=== PATIENT | female | born 1990 | race Caucasian/White ===

== ENCOUNTER 2019-06-29 16:21 | Emergency (ER) | payer MEDICAID ==
[~2019-06-29] VITALS: Ht 154.9 cm; Wt 45.4 kg
[2019-06-29 16:21] VITALS: BP_SYST 123
--- NOTE | 2019-06-29 16:21 | NUR ---
BROUGHT IN BY [facility], PLACED IN BED #1 AND TRIAGED. REPORT GIVEN TO MATY
--- NOTE | 2019-06-29 16:23 | NUR ---
Patient brought in by ambulance to the ED, she was found unresponsive today. Paramedics gave her Adenosine 6mg Intranasally. Patient denied any chest pain or shortness of breath. Denied any fevers, chills. Patient is alert and oriented x1, respirations even and unlabored. VSS, pain level 0/10. Informed of approximate wait time. Instructed to notify ED staff for any changes in condition or worsening of symptoms. Patient verbalized understanding.
--- NOTE | 2019-06-29 16:30 | NUR ---
ER Dr. Brothers at bedside examining patient.
--- NOTE | 2019-06-29 16:40 | NUR ---
ECG done at bedside as ordered by Dr. Brothers. Patient tolerated the procedure well. Report given to .
--- NOTE | 2019-06-29 16:45 | NUR ---
# 16 FR In and Out catheter with use of sterile technique. Immediate return of 300 ml clear yellow urine noted. Urine sample collected and sent to lab. Pt tolerated procedure well. Patient unable to toilet self.
--- NOTE | 2019-06-29 16:50 | NUR ---
plant maintenance technician at bedside as ordered by Dr. Brothers collecting blood specimen. Patient tolerated the procedure well.
--- NOTE | 2019-06-29 16:52 | NUR ---
SPOUSE AT BEDSIDE FOR SUPPORT
[2019-06-29 17:03] LABS: BASOPHILS % (AUTO) 0.3 % (0.0-2.0); EOSINOPHILS # (AUTO) 0.1 K/uL (0.0-0.4); EOSINOPHILS % (AUTO) 0.8 % (0.0-4.0); HEMATOCRIT 35.7 % (36-48); LYMPHOCYTES # (AUTO) 3.8 K/uL (1.0-5.5); LYMPHOCYTES % (AUTO) 27.3 % (20.5-51.5); MEAN CORPUSCULAR HEMOGLOBIN 32 pg (27-31); MEAN CORPUSCULAR HGB CONC 34 % (32-36); MEAN CORPUSCULAR VOLUME 95 fL (79.0-98.0); NEUTROPHILS % (AUTO) 64.6 % (40.0-70.0); PLATELET COUNT (AUTO) 222 K/uL (130-430); RED BLOOD CELL COUNT(AUTO) 3.77 MIL/uL (4.2-6.2); RED CELL DISTRIBUTION WIDTH 14.1 % (9.0-15.0); WHITE BLOOD COUNT (AUTO) 13.9 K/uL (4.8-10.8)
[2019-06-29 17:10] LABS: ANION GAP 9 (5-15); CALCIUM 8.4 mg/dL (8.4-11.0); CHLORIDE 103 mmol/L (98-107); GLUCOSE 98 mg/dL (70-99); POTASSIUM 3.1 mmol/L (3.5-5.1); SODIUM SERUM 140 mmol/L (136-145); UREA NITROGEN, BLOOD 13 mg/dL (8-21)
[2019-06-29 17:11] LABS: GFR AFRICAN AMERICAN 155 mL/min (>90)
--- NOTE | 2019-06-29 17:22 | NUR ---
Administered Potassium PO as ordered by Dr. Brothers. Patient tolerated the medication well. See eMAR for details.
[2019-06-29 17:24] LABS: ALANINE AMINOTRANSFERASE 20 U/L (12-78); ALBUMIN 3.5 g/dL (3.4-4.8); ASPARTATE AMINOTRANSFERASE 21 U/L (10-37); TOTAL BILIRUBIN 0.6 mg/dL (0.0-1.0)
[2019-06-29] MEDS ORDERED: POTASSIUM CHLORIDE 20 MEQ/PKT PACKET PO ONE (17:30)
[2019-06-29 17:39] LABS: ALCOHOL, BLOOD < 3 mg/dL (<10)
[2019-06-29 17:40] LABS: ACETAMINOPHEN < 1 ug/mL (1-30)
--- NOTE | 2019-06-29 17:45 | NUR ---
Administered Rocephin IVPB as ordered by Dr. Brothers. Patient tolerated the medication well. See eMAR for details.
[2019-06-29 17:49] LABS: BILIRUBIN,URINE NEGATIVE (NEGATIVE); BLOOD, URINE NEGATIVE (NEGATIVE); COCAINE, URINE POSITIVE (NEG <=150); COLOR,URINE YELLOW (YELLOW); GLUCOSE,URINE NEGATIVE (NEGATIVE); KETONES,URINE NEGATIVE (NEGATIVE); LEUKOCYTE ESTERASE ,URINE NEGATIVE (NEGATIVE); NITRITE, URINE POSITIVE (NEGATIVE); PROTEIN URINE NEGATIVE (NEGATIVE); UROBILINOGEN,URINE 0.2 (0.2-1.0)
[2019-06-29 17:50] LABS: BARBITURATE, URINE NEGATIVE (NEG <=200); BENZODIAZEPINE, URINE NEGATIVE (NEG <=150); CANNABINOID, URINE NEGATIVE (NEG <=50); METHAMPHETAMINES SCREEN,URINE NEGATIVE (NEG <=500); OPIATE, URINE POSITIVE (NEG <=100); PHENCYCLIDINE SCREEN,URINE NEGATIVE (NEG <=25); UR TRICYCLIC ANTIDEPRESSANTS NEGATIVE (NEG <=300); URINE AMPHETAMINE NEGATIVE (NEG <=500); URINE METHADONE NEGATIVE (NEG <=200); URINE OXYCODONE SCREEN NEGATIVE (NEG <=100); URINE PROPOXYPHENE SCREEN NEGATIVE (NEG <=300)
[2019-06-29 17:56] LABS: CLARITY/URINE SLIGHTLY HAZY (CLEAR)
[2019-06-29] MEDS ORDERED: NALOXONE HCL 2 MG/2 ML SYR IVP ONE (18:00)
[2019-06-29 18:05] LABS: BACTERIA,URINE MANY /HPF (None Seen); RBC,URINE NONE SEEN /HPF (0-3); WBC,URINE 0-3 /HPF (0-3)
[2019-06-29 18:06] LABS: MUCUS,URINE None Seen /LPF (None Seen)
[2019-06-29] MEDS ORDERED: cefTRIAXone 1 GM IVPB PREMIX 50 ML IV ONE (18:15)
--- NOTE | 2019-06-29 19:28 | NUR ---
Report given and care transferred to THOMAS Cool.
[2019-06-29 19:55] VITALS: BP_SYST 123
--- NOTE | 2019-06-29 19:55 | NUR ---
Patient given written and verbal discharge instructions and verbalizes understanding. ER MD discussed with patient the results and treatment provided. Patient in stable condition. ID arm band removed. IV catheter removed intact and dressing applied, no active bleeding. Patient educated on pain management and to follow up with PMD. Pain Scale 0/10 Opportunity for questions provided and answered.
== END 2019-06-29 19:55 | disposition home or self-care (01) ==
LOC: SED 16:21
DX: T40.601A Poisoning by unspecified narcotics, accidental (unintentional), initial encounter (principal); N39.0 Urinary tract infection, site not specified; Y92.89 Other specified places as the place of occurrence of the external cause
CPT/HCPCS: 36415; 80053; 80307; 81000; 85025; 87086; 93005; 96365; 96375; 99284; G0480; G0481; G0482; J0696; J2310